=== PATIENT | female | born 1970 | race Caucasian/White ===

== ENCOUNTER 2016-09-04 13:25 | Emergency (ER) | payer BC, OTHER ==
[~2016-09-04] VITALS: Ht 160 cm; Wt 89.8 kg
[2016-09-04 13:51] VITALS: BP 148/85; PULSE 107; RESP 20; TEMP 97.2; O2SAT 97
--- NOTE | 2016-09-04 14:00 | NUR ---
Pt placed to ER waiting room in stable condition.
--- NOTE | 2016-09-04 14:32 | NUR ---
Dr. Ceron at bedside examining pt in triage
[2016-09-04 14:42] LABS: EOSINOPHILS # (AUTO) 0.1 K/uL (0.0-0.4); HEMATOCRIT 42.2 % (36-48); HEMOGLOBIN 14.4 g/dL (12.0-16.0); LYMPHOCYTES # (AUTO) 1.4 K/uL (1.0-5.5); LYMPHOCYTES % (AUTO) 18.8 % (20.5-51.5); MEAN CORPUSCULAR HEMOGLOBIN 30 pg (27-31); MEAN CORPUSCULAR HGB CONC 34 % (32-36); MEAN CORPUSCULAR VOLUME 88 fL (79.0-98.0); MONOCYTES # (AUTO) 0.5 K/uL (0.0-1.0); MONOCYTES % (AUTO) 6.7 % (1.7-9.3); PLATELET COUNT (AUTO) 257 K/uL (130-430); RED BLOOD CELL COUNT(AUTO) 4.78 MIL/uL (4.2-6.2); RED CELL DISTRIBUTION WIDTH 12.7 % (9.0-15.0); WHITE BLOOD COUNT (AUTO) 7.5 K/uL (4.8-10.8)
[2016-09-04 14:44] LABS: BASOPHILS % (AUTO) 0.5 % (0.0-2.0); NEUTROPHILS # (AUTO) 5.5 K/uL (1.8-7.7)
[2016-09-04 14:53] LABS: CALCIUM 9.3 mg/dL (8.4-11.0); CREATININE 0.73 mg/dL (0.55-1.30); POTASSIUM 4.4 mmol/L (3.5-5.1)
[2016-09-04 14:59] LABS: ALBUMIN 3.9 g/dL (3.4-4.8); TOTAL BILIRUBIN 0.4 mg/dL (0.0-1.0); TOTAL PROTEIN, SERUM 7.7 g/dL (6.4-8.3)
--- NOTE | 2016-09-04 15:05 | NUR ---
Pt placed in ER bed 02 and to gown. Pt report given to SERGIO Rene.
--- NOTE | 2016-09-04 15:10 | NUR ---
DR. HO AT BEDSIDE EXAMINING THE PT.
--- NOTE | 2016-09-04 15:15 | NUR ---
Pt. presented to ER c/o restlessness.Pt. states that she has not been able to sleep, states she keeps waking up about every hour feels restless, no other complaints, denies SOB denies CP denies headache, skin intact and warm, lungs clear to auscultation, denies headache N/V
[2016-09-04] MEDS ORDERED: NACL 0.9% 1,000 ML IV ONE (15:30)
[2016-09-04] MEDS ORDERED: KETOROLAC TROMETHAMINE 30 MG VIAL IVP ONE (15:30)
[2016-09-04] MEDS ORDERED: PROCHLORPERAZINE EDISYLATE 10 MG/2 ML VIAL IVP ONE (15:30)
--- NOTE | 2016-09-04 16:00 | NUR ---
pt. resting states she feels fine no pain wants to go home Dr. peterson at bedside exaplaining the treatment plan to pt. IV fluids running
--- NOTE | 2016-09-04 16:45 | NUR ---
md dr. peterson notified of pt. blood sugar 328 , md okayed to discharge
[2016-09-04 17:00] VITALS: BP 138/59; PULSE 77; RESP 18; TEMP 98.7; O2SAT 99
--- NOTE | 2016-09-04 17:00 | NUR ---
Patient given written and verbal discharge instructions and verbalizes understanding. ER MD Dr. peterson discussed with patient the results and treatment provided. Patient in stable condition. ID arm band removed. IV catheter removed intact and dressing applied, no active bleeding. Rx of ativan given. Patient educated on pain management and to follow up with PMD. Pain Scale 0/10. Opportunity for questions provided and answered.
== END 2016-09-04 17:00 | disposition home or self-care (01) ==
LOC: SED 13:25
DX: G47.00 Insomnia, unspecified (principal); R73.9 Hyperglycemia, unspecified
CPT/HCPCS: 36415; 80053; 85025; 96361; 96374; 96375; 99284; J0780; J1885; J7030

== ENCOUNTER 2017-10-29 10:30 | Emergency (ER) | payer OTHER ==
[~2017-10-29] VITALS: Ht 157.5 cm; Wt 93.0 kg
[2017-10-29 10:30] VITALS: BP_SYST 150
[2017-10-29] MEDS ORDERED: KETOROLAC TROMETHAMINE 60 MG/2 ML VIAL IM ONE (11:15)
[2017-10-29 11:41] VITALS: BP_SYST 128
== END 2017-10-29 11:41 | disposition home or self-care (01) ==
LOC: SED 10:30
DX: H60.91 Unspecified otitis externa, right ear (principal); E11.9 Type 2 diabetes mellitus without complications; I10 Essential (primary) hypertension
CPT/HCPCS: 96372; 99283; J1885